=== PATIENT | male | born 1945 | race Hispanic/Latino ===

== ENCOUNTER 2016-05-29 07:20 | Outpatient (CLI) | payer MEDICARE ==
--- NOTE | 2016-05-30 08:57 | Magnetic Resonance Report ---
MRI ABDOMEN WITHOUT AND WITH CONTRAST : 05/29/16 CLINICAL: Renal mass. COMPARISON :CT abdomen and pelvis with contrast 06/01/16 TECHNIQUE: Axial T1 in phase and opposed phase, coronal and axial T2 and axial T2 fat sat sequences plus multiphase postcontrast T1 fat sat sequences plus thin and thick slab MRCP sequences on a 1.5 Kimberly magnet. 12 cc of Multihance was injected intravenously for the contrast portion of the exam and consent was obtained prior to the administration of the contrast. FINDINGS: An oval enhancing mass of the lower pole of the left kidney measures 5.4 cm craniocaudal dimension by 5.1 cm AP dimension by 4.0 cm transverse dimension. The mass contains numerous nonenhancing small cysts with some approaching 1 cm in diameter. A left upper pole renal cyst has a smooth thin wall and measures 13.8 x 11.5 x 9.9 cm. No other mass or cyst of the left kidney. The left renal collecting system and ureter are nondilated. The left kidney measures 11.1 cm in length excluding the lower pole mass and the upper pole cyst. The right kidney measures 11.3 cm in length. A few small right renal cysts. The largest is central and measures 1.5 cm. The right renal collecting system and ureter are nondilated. No lymphadenopathy identified. The aorta and inferior vena cava are normal. The adrenal glands are normal. Normal liver, gallbladder and bile ducts. Normal stomach, duodenum, pancreas and spleen. No ascites. The imaged portions of small bowel and colon are normal. The bones and soft tissues are unremarkable. IMPRESSION: 1. A 5.4 cm mass of the lower pole of the left kidney with both solid and cystic components suspicious for renal cell carcinoma. 2. Bilateral benign renal cysts with the largest on the left measuring 13.8 cm. 3. No lymphadenopathy.
== END 2016-05-29 07:21 | disposition home or self-care (01) ==
LOC: MRI 07:20 → SPVIMAG 07:20
PROVIDERS: ATTEND Urology
DX: N28.1 Cyst of kidney, acquired (principal)
CPT/HCPCS: 74183; A9577

== ENCOUNTER 2016-06-29 11:03 | Day surgery (SDC) | payer MEDICARE ==
[2016-06-28 15:04] LABS: Hematocrit 25.4 % (35.5-45.6); Hemoglobin 7.6 gm/dl (11.8-15.2)
[2016-06-29] MEDS ORDERED: NACL 0.9% 250ML 250 ML IV ONE (11:05)
[2016-06-29 14:22] VITALS: BP 127/51
--- NOTE | 2016-07-03 10:55 | Query-Anemia ---
Rhonda Sanchez Date:_07/03/16 [employer]/CDS:Yvette Alvarez Phone#:[phone] Exercise your independent professional judgment when responding to this query. Questions asked do not imply a particular answer is desired or expected. We greatly appreciate your clarification on this issue. Clinical Documentation States: 71 Y/O Male presented 06/29/2016 to the outpatient surgical center at [facility] for a blood transfusion. Clinical Findings Show: 06/28 Hgb: 7.6 Hct: 25.4 Etiology: [ ] Anemia due to acute blood loss [ ] Anemia due to chronic blood loss [ ] Anemia secondary to ESRD [ ] Anemia secondary to neoplastic disease [ ] Iron deficiency anemia due to malabsorption [ ] GI Bleed from: [ ] Anemia of chronic disease ,Other: [ ] Precipitous Drop in Hemoglobin [ ] Precipitous Drop in Hematocrit [ ] Other: [ ] Unable to determine [ ] Comment/Explanation: Present on Admission: [ ] Yes (Y) [ ] Clinically undeterminable (W) [ ] No (N) Please also document response in your Progress Notes and/or Discharge Summary and indicate if the condition was present on admission. IDRIS
== END 2016-06-29 14:25 | disposition home or self-care (01) ==
LOC: OPU 11:03
PROVIDERS: ATTEND Internal Medicine
DX: Z00.8 Encounter for other general examination (principal); Z79.899 Other long term (current) drug therapy
CPT/HCPCS: 36415; 36430; 85014; 85018; 86850; 86900; 86901; 86920; J7050; P9016

== ENCOUNTER 2016-07-09 16:56 | Inpatient (IN) | payer MEDICARE ==
--- NOTE | 2016-07-09 17:53 | Emergency Department Report ---
HPI - General Chief Complaint: Dizziness Time Seen by Provider: 07/09/16 17:32 - HPI HPI: Room 6 The patient is 71-year-old male presenting with a chief complaint of lightheadedness. The patient states 2 weeks ago he felt lightheaded and attributed to anemia. Patient was given a blood transfusion and his symptoms resolved. Patient states his lightheadedness began to return yesterday and this morning it worsened. Patient denies bright red blood per rectum or melena. Patient denies chest pain does admit to occasional shortness of breath with exertion. Patient denies nausea or vomiting. Location: Head Duration: [see above] Quality: Lightheadedness Severity: Moderate Modifying factors: [see above] Context: [see above] Mode of transportation: [not driving] ED Past Medical Hx - Past Medical History Previous Medical History?: Yes Hx Hypertension: Yes Hx Heart Attack/AMI: Yes Hx Congestive Heart Failure: Yes Hx Diabetes: Yes Hx Kidney Stones: Yes (right kidney- stones; left kidney-mass dx 05/2016) - Surgical History Past Surgical History?: Yes Additional Surgical History: Bypass, toe - Family History Family history: no significant - Social History Smoking Status: Never Smoker Substance Use Type: Alcohol (occasional) - Medications Home Medications: Home Medications Medication Instructions Recorded Confirmed Last Taken Type Furosemide [Lasix] 40 mg PO BID 07/31/13 07/09/16 07/09/16 History Amlodipine Besylate 5 mg PO DAILY 08/12/14 07/09/16 07/09/16 History Fish Oil 1,000 mg Softgel 1,000 mg PO DAILY 08/12/14 07/09/16 07/09/16 History Lantus 25 units SQ HS 08/12/14 07/09/16 07/09/16 History Lipitor 40 mg PO DAILY 08/12/14 07/09/16 07/09/16 History Onglyza 5 mg PO DAILY 08/12/14 07/09/16 07/09/16 History Quinapril(Nf) 20 mg PO DAILY 08/12/14 07/09/16 07/09/16 History Vitamin C 1,000 mg PO DAILY 08/12/14 07/09/16 07/09/16 History Aspirin EC [Aspirin Enteric Coated 81 mg PO QDAY tablet 08/16/14 07/09/1607/09 Rx TAB] Magnesium Oxide [Mag-Ox] 400 mg PO QDAY #30 tablet 08/16/14 07/09/16 07/09/16 Rx Potassium Chloride [K-Dur] 20 meq PO QDAY #30 tablet 08/16/14 07/09/16 07/09/16 Rx Repaglinide [Prandin] 2 mg PO TIDWM tablet 08/16/14 07/09/16 07/09/16 Rx Rivaroxaban [Xarelto] 20 mg PO DAILY #30 tablet 08/16/14 07/09/16 07/09/16 Rx Flax Seed Oil 1,000 mg PO HS 07/26/15 07/09/16 07/09/16 History Insulin Lispro Prot/Lispro 55 units SUB-Q QAM 07/26/15 07/09/16 07/09/16 History [HumaLOG Mix 75/25 Vial] Amiodarone [Cordarone 200 MG TAB] 200 mg PO BID #60 tablet 07/29/15 07/09/16 Rx Carvedilol [Coreg] 12.5 mg PO BID #60 tablet 07/29/15 07/09/16 07/09/16 Rx Diphenoxylate HCl/Atropine 2 each PO QID PRN #20 tablet 05/05/16 07/09/16 Rx [Lomotil 2.5-0.025 mg Tablet] ED Review of Systems ROS: Stated complaint: LIGHTHEADEDNESS Other details as noted in HPI Comment: All other systems reviewed and negative Constitutional: denies: chills, fever Eyes: denies: eye pain, eye discharge, vision change ENT: denies: ear pain, throat pain Respiratory: SOB with exertion Cardiovascular: denies: chest pain, palpitations Endocrine: no symptoms reported Gastrointestinal: denies: abdominal pain, nausea, diarrhea Genitourinary: denies: urgency, dysuria Musculoskeletal: denies: back pain, joint swelling, arthralgia Skin: denies: rash, lesions Neurological: other (lightheadedness). denies: headache, weakness, paresthesias Psychiatric: denies: anxiety, depression Hematological/Lymphatic: denies: easy bleeding, easy bruising Physical Exam - Physical Exam Vital Signs: Vital Signs 07/09/16 17:14 Temperature 98.1 F Pulse Rate 60 Respiratory 18 Rate Blood Pressure 125/50 O2 Sat by Pulse 98 Oximetry Physical Exam: GENERAL: The patient is well-developed well-nourished male lying on stretcher not appearing to be in acute distress. [] HEENT: Normocephalic. Atraumatic. Extraocular motions are intact. Patient has moist mucous membranes. NECK: Supple. Trachea midline CHEST/LUNGS: Clear to auscultation. There is no respiratory distress noted. HEART/CARDIOVASCULAR: Regular. There is no tachycardia. There is no gallop rub or murmur. ABDOMEN: Abdomen is soft, nontender. Patient has normal bowel sounds. There is no abdominal distention. SKIN: There is no rash. There is no edema. There is no diaphoresis. NEURO: The patient is awake, alert, and oriented. The patient is cooperative. Cranial nerves II through XII grossly intact, no drift. The patient has normal speech. MUSCULOSKELETAL: There is no evidence of acute injury. ED Course Vital Signs 07/09/16 17:14 Temperature 98.1 F Pulse Rate 60 Respiratory 18 Rate Blood Pressure 125/50 O2 Sat by Pulse 98 Oximetry ED Medical Decision Making - Lab Data Result diagrams: 07/09/16 17:38 07/09/16 17:38 Laboratory Tests 07/09/16 07/09/16 07/09/16 17:09 17:38 17:38 WBC 8.7 RBC 3.71 Hgb 8.0 L Hct 26.3 L MCV 71 L MCH 22 L MCHC 31 L RDW 19.2 H Plt Count 217 Lymph % (Auto) 16.5 [place] % (Auto) 10.4 H Eos % (Auto) 1.4 Baso % (Auto) 1.2 Lymph # 1.4 [place] # 0.9 H Eos # 0.1 Baso # 0.1 Seg Neutrophils % 70.5 H Seg Neutrophils # 6.2 PT 28.8 H INR 2.70 H APTT 47.1 H Sodium Potassium Chloride Carbon Dioxide Anion Gap BUN Creatinine Estimated GFR BUN/Creatinine Ratio Glucose POC Glucose 279 H Calcium Total Creatine Kinase CK-MB (CK-2) CK-MB (CK-2) Rel Index Troponin T TSH Free T4 Urine Color Urine Turbidity Urine pH Ur Specific [place] Urine Protein Urine Glucose (UA) Urine Ketones Urine Blood Urine Nitrite Urine Bilirubin Urine Urobilinogen Ur Leukocyte Esterase Urine WBC (Auto) Urine RBC (Auto) U Epithel Cells (Auto) Blood Type Antibody Screen Crossmatch 07/09/16 07/09/16 07/09/16 17:38 17:38 17:45 WBC RBC Hgb Hct MCV MCH MCHC RDW Plt Count Lymph % (Auto) [place] % (Auto) Eos % (Auto) Baso % (Auto) Lymph # [place] # Eos # Baso # Seg Neutrophils % Seg Neutrophils # PT INR APTT Sodium 136 L Potassium 5.6 H Chloride 99.8 Carbon Dioxide 23 Anion Gap 19 BUN 27 H Creatinine 1.2 Estimated GFR 60 BUN/Creatinine Ratio 22.50 Glucose 266 H POC Glucose Calcium 8.8 Total Creatine Kinase 77 CK-MB (CK-2) 2.9 CK-MB (CK-2) Rel Index 3.7 Troponin T < 0.010 TSH 0.936 Free T4 1.18 Urine Color Urine Turbidity Urine pH Ur Specific [place] Urine Protein Urine Glucose (UA) Urine Ketones Urine Blood Urine Nitrite Urine Bilirubin Urine Urobilinogen Ur Leukocyte Esterase Urine WBC (Auto) Urine RBC (Auto) U Epithel Cells (Auto) Blood Type O POSITIVE Antibody Screen TNR Crossmatch See Detail 07/09/16 18:23 WBC RBC Hgb Hct MCV MCH MCHC RDW Plt Count Lymph % (Auto) [place] % (Auto) Eos % (Auto) Baso % (Auto) Lymph # [place] # Eos # Baso # Seg Neutrophils % Seg Neutrophils # PT INR APTT Sodium Potassium Chloride Carbon Dioxide Anion Gap BUN Creatinine Estimated GFR BUN/Creatinine Ratio Glucose POC Glucose Calcium Total Creatine Kinase CK-MB (CK-2) CK-MB (CK-2) Rel Index Troponin T TSH Free T4 Urine Color Red Urine Turbidity Cloudy Urine pH 6.0 Ur Specific [place] 1.013 Urine Protein 100 mg/dl Urine Glucose (UA) Neg Urine Ketones Neg Urine Blood Lg Urine Nitrite Neg Urine Bilirubin Neg Urine Urobilinogen < 2.0 Ur Leukocyte Esterase Sm Urine WBC (Auto) 23.0 H Urine RBC (Auto) > 182.0 U Epithel Cells (Auto) 3.0 Blood Type Antibody Screen Crossmatch - Radiology Data Radiology results: report reviewed (CT head), image reviewed (CT head) CT head (read by radiologist)-no abnormal mass or acute intracranial hemorrhage is identified - Differential Diagnosis symptomatic anemia Critical care attestation.: If time is entered above; I have spent that time in minutes in the direct care of this critically ill patient, excluding procedure time. ED Disposition Clinical Impression: Symptomatic anemia, Hematuria, UTI (urinary tract infection) Disposition: OP ADMITTED IP TO THIS HOSP Is pt being admited?: Yes Does the pt Need Aspirin: No Condition: Fair Time of Disposition: 18:43 (hospitalist paged)
[2016-07-09 18:09] LABS: Basophils % (Auto) 1.2 % (0.0-1.8); Eosinophils % (Auto) 1.4 % (0.0-4.3); Hematocrit 26.3 % (35.5-45.6); Mean Corpuscular HGB Conc 31 % (32-34); Mean Corpuscular Hemoglobin 22 pg (28-32); Mean Corpuscular Volume 71 fl (84-94); Platelet Count 217 K/mm3 (140-440); Red Blood Count 3.71 M/mm3 (3.65-5.03); Red Cell Distribution Width 19.2 % (13.2-15.2); White Blood Count 8.7 K/mm3 (4.5-11.0)
[2016-07-09] MEDS ORDERED: NACL 0.9% 500 ML 500 ML IV ONE (18:16)
[2016-07-09 18:19] LABS: INR 2.7 (0.87-1.13)
[2016-07-09 18:20] LABS: Partial Thromboplastin Time 47.1 Sec. (24.2-36.6)
[2016-07-09 18:23] LABS: Creatine Kinase MB 2.9 ng/mL (0.0-4.0)
[2016-07-09 18:26] LABS: Anion Gap 19 mmol/L; Blood Urea Nitrogen 27 mg/dL (9-20); Calcium 8.8 mg/dL (8.4-10.2); Carbon Dioxide 23 mmol/L (22-30); Chloride 99.8 mmol/L (98-107); Creatine Kinase 77 units/L (55-170); Glucose 266 mg/dL (75-100); Potassium 5.6 mmol/L (3.6-5.0); Sodium 136 mmol/L (137-145)
[2016-07-09 18:35] LABS: Bilirubin,Urine NEG (Negative); Blood,Urine LG (Negative); Ketones,Urine NEG (Negative); Leukocyte Esterase,Urine SM (Negative); Nitrite,Urine NEG (Negative); Urobilinogen,Urine < 2.0 mg/dL (<2.0)
[2016-07-09 18:36] LABS: RBC,Urine > 182.0 /HPF (0.0-6.0)
--- NOTE | 2016-07-09 18:40 | Cat Scan Report ---
FINAL REPORT EXAM: CT HEAD/BRAIN WO CON HISTORY: lightheadedness TECHNIQUE: Noncontrast serial axial images from skull base to vertex PRIORS: None. FINDINGS: There is moderate atrophy. There is no mass effect or midline shift. There are no abnormal intra or extra-axial fluid collections. Lateral ventricles are within normal limits for size and configuration. Basilar cisterns are patent. No acute intracranial hemorrhage is identified. Areas of relative hypodensity are seen in the white matter of the frontal lobes. Atherosclerotic changes are noted. Visualized paranasal sinuses and mastoid air cells are well aerated. No acute osseous abnormality is identified. IMPRESSION: 1. No abnormal mass or acute intracranial hemorrhage is identified. 2. Areas of relative hypodensity are seen in the white matter of the frontal lobes. This is a nonspecific finding. It may be related to chronic ischemic change from small vessel disease.
[2016-07-09] MEDS ORDERED: NACL 0.9% 500 ML 500 ML ONE (20:34)
--- NOTE | 2016-07-09 21:57 | Event Note ---
Date: 07/09/16 See H/p in reports Acute Anemia IDDM R/o GI Bleed HTN CHF CAD Hyperkalemia UTI
[2016-07-09] MEDS ORDERED: LANTUS 25 UNIT SQ SCH (22:00)
--- NOTE | 2016-07-09 22:54 | History and Physical Report ---
CHIEF COMPLAINT: Dizziness. HISTORY OF PRESENT ILLNESS: A 71-year-old male who comes in for feeling lightheaded and dizzy. The patient attributed his lightheadedness and dizziness to anemia. The patient was given blood transfusion about a week ago. Dr. Daily is his primary care. Since last couple of few days, it has been last 3-4 days, he has been feeling lightheaded and feeling very weak. No black tarry stools. Denies cough, fever or chills. Shortness of breath with exertion. No tarry stools, no vomiting or blood. Occasional abdominal cramps. Pain is about 4-5 a scale of 1-10. No exacerbating or relieving factors. PAST MEDICAL HISTORY: Significant for insulin-dependent diabetes, hypertension, acute coronary artery disease, congestive heart failure, right kidney stones, and left kidney mass. 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 FAMILY HISTORY: No hypertension present. SOCIAL HISTORY: He does not smoke. Occasional alcohol. MEDICATIONS ON THE CHART: The patient takes Lantus 40 mg p.o. daily, Lipitor 40 mg p.o. daily, Onglyza 5 mg p.o. daily, quinapril 20 mg p.o. daily, and Xarelto 20 mg p.o. daily. REVIEW OF SYSTEMS: CONSTITUTIONAL: No fever, no weight loss, generalized weakness present. HEENT: No sore throat. No postnasal drip. CARDIOVASCULAR AND RESPIRATORY SYSTEM: Shortness of breath on exertion present. No chest pain, no palpitations. No cough, no wheezing. GASTROINTESTINAL: No tarry stools. No diarrhea, no constipation. GENITOURINARY SYSTEM: Denies any urgency or frequency. MUSCULOSKELETAL SYSTEM: No joint pain, no muscle pains. CENTRAL NERVOUS SYSTEM: No syncope, no seizures. PSYCHIATRIC: No anxiety, no depression. HEMATOLOGIC/LYMPHATIC SYSTEM: Denies easy bleeding. SKIN: Normal. No rash. A 10-point review of systems done. PHYSICAL EXAMINATION: GENERAL: Elderly male lying in bed comfortably, cheerful. VITAL SIGNS: Temperature 98.1, pulse 60, respiration 18, blood pressure 125/50. HEENT: Unremarkable. Pupils equal and reactive. NECK: Supple, no lymphadenopathy, no thyromegaly. LUNGS: Clear to auscultation and percussion. Good air entry. CARDIOVASCULAR: S1, S2 heard. No gallop, no murmur, no rub. Apical impulse in the left fifth intercostal space and midclavicular line. ABDOMEN: Soft and benign. No hepatosplenomegaly. No guarding, no rigidity. Hernial orifices are normal. EXTREMITIES: Good pedal pulses. No pedal edema. CENTRAL NERVOUS SYSTEM: Alert and oriented x 4, nonfocal exam. SKIN: Normal. LABORATORY DATA: White count is 8700, hemoglobin was 8.0 and hematocrit is 26.3. Pro-time is 28.8, INR is 2.7. Sodium is 136, potassium is 5.6, BUN and creatinine is 27 and 1.2. Glucose is 266 and 279. Urine shows 23 white cells. ASSESSMENT AND PLAN: 1. Acute anemia. The patient has GI consult ordered for Dr. Duran's group. The patient may need upper and lower endoscopy. There is no reason for his anemia. Also, has to check iron levels, B12, and folic acid. 2. Uncontrolled diabetes, coverage for now. 3. Hyperkalemia, mild. Calcium gluconate and sodium bicarbonate given. 4. Urinary tract infection, Rocephin 1 g IV piggyback started. 5. Coronary artery disease, the patient Xarelto. We will hold the Xarelto for the time being. 6. Arrhythmias. Continue amiodarone 200 mg twice a day. 7. Hypertension. Continue amlodipine 5 mg daily and carvedilol 12.5 daily. 8. Congestive heart failure. Continue Lasix 40 mg twice a day. 9. Insulin-dependent diabetes. Continue insulin coverage and Lantus at nighttime 25 units. 10. Deep venous thrombosis prophylaxis. The patient's Xeralto on hold, only sequential compression devices. Lovenox 40 mg subcutaneous daily ordered. JOB# [id number] NOEL/CRISTA LEED
[2016-07-09] MEDS ORDERED: NACL 0.9% 250ML 250 ML ONE (23:00)
[2016-07-10] MEDS: COREG PO SCH ×2 (02:37→09:36)
[2016-07-10] MEDS: CORDARONE PO SCH ×2 (02:37→09:36)
[2016-07-10] MEDS: LEVEMIR SUB-Q SCH ×2 (02:38→23:00)
[2016-07-10] MEDS: LASIX PO SCH ×3 (02:38→21:44)
[2016-07-10] MEDS: NORVASC PO SCH ×2 (02:40→09:36)
[2016-07-10] MEDS: MAG-OX PO SCH ×2 (02:40→09:36)
[2016-07-10] MEDS: NOVOLOG SUB-Q SCH ×5 (02:40→23:00)
[2016-07-10] MEDS ORDERED: NACL 0.9% 250ML 250 ML IV ONE (03:25)
[2016-07-10 07:38] LABS: Total Iron Binding Capacity 417.2 mcg/dL (250-450)
--- NOTE | 2016-07-10 09:18 | Admit Criteria Form ---
Admission Criteria Documentation: ANEMIA, IRON DEFICIENCY OR UNSPECIFIED Clinical Indications for Inpatient Care (Place 'X' for any and all applicable criteria): Admission is indicated for ANY ONE of the following(1)(2)(3)(4)(5)(6)(7): [X] I. Inpatient admission required rather than observation care (Also use Anemia, Iron Deficiency or Unspecified: Observation Care guideline as appropriate) because of ANY ONE of the following: [] a) Hemodynamic instability that is severe or persistent [] b) Active bleeding that cannot be rapidly controlled [] c) CVS symptoms (i.e., dyspnea, chest pain, heart failure) that are severe or persistent [] d) Neurologic symptoms (i.e., cognitive impairment, recurrent syncope or near syncope) that are severe or persistent [] e) Cardiac arrhythmias of immediate concern [] f) Acute peripheral ischemia (e.g., pulseless, cool, mottled, or cyanotic extremity) [] g) High-risk low platelet count [] h) Acute renal failure [] i) Ongoing transfusion for blood loss (greater than 2 units) [] j) IV fluid to replace significant ongoing (eg, >24 hours) losses (> 3 L/m2 per day) [] k) Pulmonary artery catheter monitoring [] l) Supplemental oxygen or respiratory treatments for over 24 hours that are performable only in acute inpatient setting [] m) Immediate inpatient surgery [X] n) Other condition, treatment or monitoring requiring inpatient admission [] II Active massive hemorrhage [] III. Active hemolysis with rapidly progressive anemia [A](6) Extended stay beyond goal length of stay may be needed for (17)(18) []a) Diagnosed cause of anemia requiring longer hospitalization (eg, active GI bleeding, immune hemolysis requiring electrophoresis, complications of malignancy requiring acute care []b) Continued emergent anemia indicators (23) []c) Transfusion reactions []d) Associated leukopenia or thrombocytopenia needing inpatient care []e) Active comorbidities (eg, renal failure, heart failure) The original [facility] Care Guidelines content created by [facility] Care Guidelines has been revised. The portions of the content which have been revised are identified through the use of italic text or in bold. [facility] Guidelines has neither reviewed nor approved the modified material. All other unmodified content is copyright [facility] Care Guidelines. Please see references footnoted in the original [facility] edition 2016 Admission Criteria Met: Yes
[2016-07-10] MEDS: ROCEPHIN/NS 1 GM/50 ML 1 GM/50 ML BAG IV SCH (09:35)
[2016-07-10] MEDS: PRANDIN PO SCH ×3 (09:35→17:54)
[2016-07-10] MEDS: ZESTRIL PO SCH (09:35)
[2016-07-10] MEDS: TRADJENTA PO SCH (09:35)
[2016-07-10] MEDS ORDERED: [UNRECOGNIZED DRUG - OTHER] SUB-Q SCH (10:00)
[2016-07-10] MEDS ORDERED: INSULIN LISPRO PROTAMINE SUB-Q SCH (10:00)
[2016-07-10] MEDS ORDERED: KIONEX PO ONE (14:10)
--- NOTE | 2016-07-10 14:18 | Progress Note ---
Assessment and Plan Assessment and plan: 71-year-old male with medical history significant for bradycardia, left kidney mass presented to the emergency department complaining of syncope and blurring vision. In the emergency department vital signs were stable and his hemoglobin was 8 he was transfused with 2 units Packed red blood cells. - Microcytic anemia ; patient has history of hematuria likely the source, we need to rule out if he has GI blood loss, FOBT was ordered but not collected, Parvez consult is placed. Post transfusion hemoglobin hematocrit is pending - Left kidney mass likely malignancy could be the cause of her anemia, patient is scheduled to have nephrectomy on July 21 and advised to keep that appointment - Bradycardia ; patient is on amiodarone and no NOVAC, patient may have A. fib didn't see any record in his previous admissions, cardiology consult is placed, carvedilol discontinued Diabetic ; continue sliding scale insulin Hyperkalemia; give him Kayexalate DVT prophylaxis ; on SCDs Disposition ; possible discharge tomorrow History Interval history: Patient was seen and evaluated this morning, patient didn't have any dizziness today, patient denied any dark stool. Patient has bradycardia. Hospitalist Physical - Physical exam Narrative exam: Not in cardiopulmonary distress. The patient appeared well nourished and normally developed. Vital signs as documented. Head exam is unremarkable. No scleral icterus . Neck is without jugular venous distension, thyromegaly, or carotid bruits. Lungs are clear to auscultation. Cardiac exam reveals sinus bradycardia. Abdominal exam reveals normal bowel sounds, no masses, no organomegaly and no aortic enlargement. Extremities are nonedematous and both femoral and pedal pulses are normal. CARCASS WASHER: Alert and oriented 3. No focal weakness. - Constitutional Vitals: Temp Pulse Resp BP Pulse Ox 98.2 F 42 L 20 120/56 97 07/10/16 12:00 07/10/16 12:00 07/10/16 12:00 07/10/16 12:00 07/10/16 08:03 Results - Labs CBC & Chem 7: 07/09/16 17:38 07/09/16 17:38 Labs: Laboratory Last Values WBC 8.7 K/mm3 (4.5-11.0) 07/09/16 17:38 RBC 3.71 M/mm3 (3.65-5.03) 07/09/16 17:38 Hgb 8.0 gm/dl (11.8-15.2) L 07/09/16 17:38 Hct 26.3 % (35.5-45.6) L 07/09/16 17:38 MCV 71 fl (84-94) L 07/09/16 17:38 MCH 22 pg (28-32) L 07/09/16 17:38 MCHC 31 % (32-34) L 07/09/16 17:38 RDW 19.2 % (13.2-15.2) H 07/09/16 17:38 Plt Count 217 K/mm3 (140-440) 07/09/16 17:38 Lymph % (Auto) 16.5 % (13.4-35.0) 07/09/16 17:38 [place] % (Auto) 10.4 % (0.0-7.3) H 07/09/16 17:38 Eos % (Auto) 1.4 % (0.0-4.3) 07/09/16 17:38 Baso % (Auto) 1.2 % (0.0-1.8) 07/09/16 17:38 Lymph # 1.4 K/mm3 (1.2-5.4) 07/09/16 17:38 [place] # 0.9 K/mm3 (0.0-0.8) H 07/09/16 17:38 Eos # 0.1 K/mm3 (0.0-0.4) 07/09/16 17:38 Baso # 0.1 K/mm3 (0.0-0.1) 07/09/16 17:38 Seg Neutrophils % 70.5 % (40.0-70.0) H 07/09/16 17:38 Seg Neutrophils # 6.2 K/mm3 (1.8-7.7) 07/09/16 17:38 PT 28.8 Sec. (12.2-14.9) H 07/09/16 17:38 INR 2.70 (0.87-1.13) H 07/09/16 17:38 APTT 47.1 Sec. (24.2-36.6) H 07/09/16 17:38 Sodium 136 mmol/L (137-145) L 07/09/16 17:38 Potassium 5.6 mmol/L (3.6-5.0) H 07/09/16 17:38 Chloride 99.8 mmol/L (98-107) 07/09/16 17:38 Carbon Dioxide 23 mmol/L (22-30) 07/09/16 17:38 Anion Gap 19 mmol/L 07/09/16 17:38 BUN 27 mg/dL (9-20) H 07/09/16 17:38 Creatinine 1.2 mg/dL (0.8-1.5) 07/09/16 17:38 Estimated GFR 60 ml/min 07/09/16 17:38 BUN/Creatinine Ratio 22.50 % 07/09/16 17:38 Glucose 266 mg/dL (75-100) H 07/09/16 17:38 POC Glucose 107 (70-105) H 07/10/16 11:35 Hemoglobin A1c 5.8 % (4-6) 07/10/16 04:10 Calcium 8.8 mg/dL (8.4-10.2) 07/09/16 17:38 Iron 22 ug/dL (49-181) L 07/09/16 22:42 TIBC 417.20 mcg/dL (250-450) 07/09/16 22:42 % Saturation 5.27 % 07/09/16 22:42 Transferrin 298 mg/dl (180-329) 07/09/16 22:42 Total Creatine Kinase 77 units/L (55-170) 07/09/16 17:38 CK-MB (CK-2) 2.9 ng/mL (0.0-4.0) 07/09/16 17:38 CK-MB (CK-2) Rel Index 3.7 (0-4) 07/09/16 17:38 Troponin T < 0.010 ng/mL (0.00-0.029) 07/09/16 17:38 TSH 0.936 mlU/mL (0.270-4.200) 07/09/16 17:38 Free T4 1.18 ng/dL (0.76-1.46) 07/09/16 17:38 Urine Color Red (Yellow) 07/09/16 18:23 Urine Turbidity Cloudy (Clear) 07/09/16 18:23 Urine pH 6.0 (5.0-7.0) 07/09/16 18:23 Ur Specific [place] 1.013 (1.003-1.030) 07/09/16 18:23 Urine Protein 100 mg/dl mg/dL (Negative) 07/09/16 18:23 Urine Glucose (UA) Neg mg/dL (Negative) 07/09/16 18:23 Urine Ketones Neg mg/dL (Negative) 07/09/16 18:23 Urine Blood Lg (Negative) 07/09/16 18:23 Urine Nitrite Neg (Negative) 07/09/16 18:23 Urine Bilirubin Neg (Negative) 07/09/16 18:23 Urine Urobilinogen < 2.0 mg/dL (<2.0) 07/09/16 18:23 Ur Leukocyte Esterase Sm (Negative) 07/09/16 18:23 Urine WBC (Auto) 23.0 /HPF (0.0-6.0) H 07/09/16 18:23 Urine RBC (Auto) > 182.0 /HPF (0.0-6.0) 07/09/16 18:23 U Epithel Cells (Auto) 3.0 /HPF (0-13.0) 07/09/16 18:23 Blood Type O POSITIVE 07/09/16 17:45 Antibody Screen TNR 07/09/16 17:45 NICK Antibody Screen Negative 07/09/16 17:45 Crossmatch See Detail 07/09/16 17:45
--- NOTE | 2016-07-10 14:32 | Consultation ---
History of Present Illness Consult date: 07/10/16 Consult reason: bradycardia History of present illness: This is a 71yr old male with an extensive cardiac history. He has a history of atrial fibrillation/flutter. A year ago he was successfully cardioverted from atrial fibrillation to a sinus rhythm. He is on amiodarone for suppression and xarelto for stroke prophylaxis. He has a history coronary artery disease with remote bypass grafting. He also has a history of ischemic cardiomyopathy. Patient has declined recommendation for internal cardiac defibrillator in the past. He presented to this hospital with chief complaint of dizziness when standing. Found to have a HCT of 26.3 and admitted for evaluation and treatment. A cardiac consultation is requested for sinus bradycardia. His presenting ECG shows a sinus rhythm with nonspecific T wave abnormalities. While on telemetry monitoring he was noted to have sinus bradycardia with rate in the low 40s. He is currently on carvediolol 12.5mg twice daily. He has a normal TSH of 0.9. Patient denies dizziness. There was no syncope. Cardiac consultation requested for further recommendations. Past History Past Medical History: atrial fib, CAD, diabetes, hypertension Past Surgical History: CABG Medications and Allergies Allergies Allergy/AdvReac Type Severity Reaction Status Date / Time Penicillins Allergy Severe Hives Verified 07/31/13 09:19 Sulfa (Sulfonamide AdvReac Severe Nausea Verified 07/31/13 09:22 Antibiotics) Home Medications Medication Instructions Recorded Confirmed Last Taken Type Furosemide [Lasix] 40 mg PO BID 07/31/13 07/09/16 07/09/16 History Amlodipine Besylate 5 mg PO DAILY 08/12/14 07/09/16 07/09/16 History Fish Oil 1,000 mg Softgel 1,000 mg PO DAILY 08/12/14 07/09/16 07/09/16 History Lantus 25 units SQ HS 08/12/14 07/09/16 07/09/16 History Lipitor 40 mg PO DAILY 08/12/14 07/09/16 07/09/16 History Onglyza 5 mg PO DAILY 08/12/14 07/09/16 07/09/16 History Quinapril(Nf) 20 mg PO DAILY 08/12/14 07/09/16 07/09/16 History Vitamin C 1,000 mg PO DAILY 08/12/14 07/09/16 07/09/16 History Aspirin EC [Aspirin Enteric Coated 81 mg PO QDAY tablet 08/16/14 07/09/1607/09 Rx TAB] Magnesium Oxide [Mag-Ox] 400 mg PO QDAY #30 tablet 08/16/14 07/09/16 07/09/16 Rx Potassium Chloride [K-Dur] 20 meq PO QDAY #30 tablet 08/16/14 07/09/16 07/09/16 Rx Repaglinide [Prandin] 2 mg PO TIDWM tablet 08/16/14 07/09/16 07/09/16 Rx Rivaroxaban [Xarelto] 20 mg PO DAILY #30 tablet 08/16/14 07/09/16 07/09/16 Rx Flax Seed Oil 1,000 mg PO HS 07/26/15 07/09/16 07/09/16 History Insulin Lispro Prot/Lispro 55 units SUB-Q QAM 07/26/15 07/09/16 07/09/16 History [HumaLOG Mix 75/25 Vial] Amiodarone [Cordarone 200 MG TAB] 200 mg PO BID #60 tablet 07/29/15 07/09/16 Rx Carvedilol [Coreg] 12.5 mg PO BID #60 tablet 07/29/15 07/09/16 07/09/16 Rx Diphenoxylate HCl/Atropine 2 each PO QID PRN #20 tablet 05/05/16 07/09/16 Rx [Lomotil 2.5-0.025 mg Tablet] Active Meds: Active Medications Amiodarone HCl (Cordarone) 200 mg PO BID [facility] Last Admin: 07/10/16 09:36 Dose: 200 mg Amlodipine Besylate (Norvasc) 5 mg PO DAILY [facility] Last Admin: 07/10/16 09:36 Dose: 5 mg Atorvastatin Calcium (Lipitor) 40 mg PO QHS [facility] Last Admin: 07/10/16 02:39 Dose: Not Given Furosemide (Lasix) 40 mg PO BID [facility] Last Admin: 07/10/16 09:36 Dose: 40 mg Ceftriaxone Sodium (Rocephin/Ns 1 Gm/50 Ml) 1 gm in 50 mls @ 100 mls/hr IV Q24HR [facility] PRN Reason: Protocol Last Admin: 07/10/16 09:35 Dose: 100 mls/hr Insulin Aspart (Novolog) 0 units SUB-Q ACHS [facility] PRN Reason: Protocol Last Admin: 07/10/16 11:53 Dose: Not Given Insulin Detemir (Levemir) 25 units SUB-Q QHS [facility] Last Admin: 07/10/16 02:38 Dose: Not Given Insulin Human Isoph/Insulin Regular (Novolin 70/30) 55 unit SUB-Q QAM@0800 [facility] Last Admin: 07/10/16 09:36 Dose: Not Given Linagliptin (Tradjenta) 5 mg PO QDAY [facility] Last Admin: 07/10/16 09:35 Dose: 5 mg Lisinopril (Zestril) 10 mg PO QDAY [facility] Last Admin: 07/10/16 09:35 Dose: 10 mg Magnesium Oxide (Mag-Ox) 400 mg PO QDAY [facility] Last Admin: 07/10/16 09:36 Dose: 400 mg Repaglinide (Prandin) 2 mg PO TIDWM [facility] Last Admin: 07/10/16 12:47 Dose: 2 mg Physical Examination Vital Signs Temp Pulse Resp BP Pulse Ox 98.1 F 60 18 125/50 98 07/09/16 17:14 07/09/16 17:14 07/09/16 17:14 07/09/16 17:14 07/09/16 17:14 General appearance: no acute distress HEENT: Positive: PERRL Neck: Positive: trachea midline Lungs: Positive: Decreased Breath Sounds Neuro: Positive: Grossly Intact Results 07/09/16 17:38 07/09/16 17:38 Assessment and Plan Symptomatic Anemia s/p blood transfusion Hx of Ischemic cardiomyopathy pt has declined recommendation for internal cardiac defibrillator in the past Hx of CAD with CABG Hypertension Diabetes mellitus Hx of paroxysmal Afib/flutter on xarelto for stroke prophylaxis as an outpatient on amiodarone for suppression Sinus bradycardia on telemetry monitoring. Patient remains asymptomatic. noted on coreg 12.5mg twice daily Recommendation: Hold coreg for now. Continue telemetry monitoring.
[2016-07-10 16:40] LABS: Hematocrit 29.8 % (35.5-45.6); Hemoglobin 9.3 gm/dl (11.8-15.2)
[2016-07-10 16:59] LABS: Anion Gap 17 mmol/L; Blood Urea Nitrogen 18 mg/dL (9-20); Carbon Dioxide 25 mmol/L (22-30); Chloride 98.9 mmol/L (98-107); Glucose 198 mg/dL (75-100); Sodium 136 mmol/L (137-145)
[2016-07-10] MEDS ORDERED: GOLYTELY PO ONE (17:00)
[2016-07-11 06:46] LABS: Mean Corpuscular HGB Conc 30 % (32-34); Mean Corpuscular Volume 76 fl (84-94); Platelet Count 228 K/mm3 (140-440); Red Blood Count 4.34 M/mm3 (3.65-5.03); White Blood Count 9.3 K/mm3 (4.5-11.0)
[2016-07-11 06:52] LABS: Hematocrit 32.8 % (35.5-45.6); Hemoglobin 9.9 gm/dl (11.8-15.2); Mean Corpuscular Hemoglobin 23 pg (28-32); Red Cell Distribution Width 21.2 % (13.2-15.2)
[2016-07-11] MEDS: NOVOLOG SUB-Q SCH ×3 (07:30→17:27)
[2016-07-11] MEDS: PRANDIN PO SCH ×3 (08:13→17:25)
--- NOTE | 2016-07-11 08:20 | Consultation ---
REFERRING PHYSICIAN: Sridhar Cruz MD INDICATION: Anemia. HISTORY OF PRESENT ILLNESS: The patient is a 71-year-old white male with a history of diabetes, hypertension, coronary artery disease, and CHF, now being seen for weakness. The patient reports a recent history of anemia without obvious signs of blood loss. He reports he had a urological procedure 1 week ago and was told he was anemic and had to get transfused. He reports over the last 1-2 days he has become progressively weak and brought to the Emergency Room. In the Emergency Room, the patient was noted to be anemic. He reports no obvious melena or hematemesis. He reports some lower abdominal discomfort. Denies any weight loss. Reports last colonoscopy was about 3 years ago. No other specific complaints. PAST MEDICAL HISTORY: 1. Diabetes. 2. Hypertension. 3. Coronary artery disease. 4. CHF. 5. Kidney stones. 6. Status post CABG. MEDICATIONS: See chart. ALLERGIES: No known drug allergies. SOCIAL HISTORY: Reports social alcohol, denies tobacco. FAMILY HISTORY: Negative for colon cancer. REVIEW OF SYSTEMS: GENERAL: Reports mild weakness. HEENT: No visual complaints or tinnitus. PULMONARY: Denies shortness of breath. CARDIOVASCULAR: No chest pain. GASTROINTESTINAL: Reports weakness. All 13-point review of systems otherwise negative. PHYSICAL EXAMINATION: VITAL SIGNS: Temperature of 98.1, pulse 80, respirations 18, blood pressure 130/80. GENERAL: Fairly-nourished white male in no acute distress. HEENT: Pupils equal, round, reactive to light and accommodation. Extraocular muscles intact. PULMONARY: Clear to auscultation bilaterally. CARDIOVASCULAR: Regular rate and rhythm. Normal S1, S2. ABDOMEN: Soft, nontender. SKIN: No obvious rashes. LABORATORY DATA: Pertinent for white count of 8.7, hemoglobin and hematocrit of 8 and 26.3, platelet count of 217. Chem-7 within normal limits. INR of 2.7. ASSESSMENT: A 71-year-old male presents with anemia and progressive weakness and having to be transfused 1 week ago. The patient himself thinks it may be related to recent urological interventions. We will want to rule out GI component. PLAN: 1. Follow hematocrit and transfuse as needed. 2. PPI IV daily. 3. Avoid NSAIDs and aspirin. 4. If stable, plan EGD and colonoscopy in a.m. [facility]# [id number] SHARON/CRISTA STEINBERG
--- NOTE | 2016-07-11 08:24 | Progress Note ---
Assessment and Plan Assessment and plan: This is a 71yr old male with an extensive cardiac history. He has a history of atrial fibrillation/flutter on anticoagulation. A year ago he was successfully cardioverted from atrial fibrillation to a sinus rhythm. He is on amiodarone for suppression and xarelto for stroke prophylaxis. He has a history coronary artery disease with remote bypass grafting. He also has a history of ischemic cardiomyopathy. Patient has declined recommendation for internal cardiac defibrillator in the past. He presented to the hospital with chief complaint of dizziness upon standing he was found to have hematocrit of 26. And also admitted to hematuria. Patient has a left kidney mass to suspected to be malignancy for which she is planned for nephrectomy on July 21. 1. Acute blood loss anemia Patient has been transfused with adequate rise in hemoglobin. Most likely etiologies hematuria, patient is to have nephrectomy on July 21 2. Paroxysmal A. fib, patient is currently bradycardic Beta [place] has been put on hold, cardiology input appreciated Heart rate is improved today, on Xarelto for stroke prophylaxis, and amiodarone for treatment of A. fib 3. Left kidney mass Patient is planned for nephrectomy on July 21 for an outpatient, he's been advised to keep this appointment 4. Diabetes Continue insulins History Interval history: Denies dizziness, denies chest pain, denies palpitations or shortness of breath Hospitalist Physical - Physical exam Narrative exam: General: Patient appears well in no distress HEENT: MMM, EOMI cardiac: S1-S2 heard lungs: clear to auscultation, abdomen: soft, nontender, nondistended bowel sounds positive extremities: no edema clubbing or cyanosis Skin: no rash or lesion Neuro: no focal deficit Psych: appropriate behavior and mood, cognition intact - Constitutional Vitals: Temp Pulse Resp BP Pulse Ox 98.1 F 55 L 18 153/66 95 07/11/16 04:30 07/11/16 04:30 07/11/16 04:30 07/11/16 04:30 07/11/16 04:30 General appearance: Present: no acute distress Results - Labs CBC & Chem 7: 07/11/16 05:22 07/10/16 16:20 Labs: Laboratory Last Values WBC 9.3 K/mm3 (4.5-11.0) 07/11/16 05:22 RBC 4.34 M/mm3 (3.65-5.03) 07/11/16 05:22 Hgb 9.9 gm/dl (11.8-15.2) L 07/11/16 05:22 Hct 32.8 % (35.5-45.6) L 07/11/16 05:22 MCV 76 fl (84-94) L D 07/11/16 05:22 MCH 23 pg (28-32) L 07/11/16 05:22 MCHC 30 % (32-34) L 07/11/16 05:22 RDW 21.2 % (13.2-15.2) H 07/11/16 05:22 Plt Count 228 K/mm3 (140-440) 07/11/16 05:22 Lymph % (Auto) 16.5 % (13.4-35.0) 07/09/16 17:38 [place] % (Auto) 10.4 % (0.0-7.3) H 07/09/16 17:38 Eos % (Auto) 1.4 % (0.0-4.3) 07/09/16 17:38 Baso % (Auto) 1.2 % (0.0-1.8) 07/09/16 17:38 Lymph # 1.4 K/mm3 (1.2-5.4) 07/09/16 17:38 [place] # 0.9 K/mm3 (0.0-0.8) H 07/09/16 17:38 Eos # 0.1 K/mm3 (0.0-0.4) 07/09/16 17:38 Baso # 0.1 K/mm3 (0.0-0.1) 07/09/16 17:38 Seg Neutrophils % 70.5 % (40.0-70.0) H 07/09/16 17:38 Seg Neutrophils # 6.2 K/mm3 (1.8-7.7) 07/09/16 17:38 PT 28.8 Sec. (12.2-14.9) H 07/09/16 17:38 INR 2.70 (0.87-1.13) H 07/09/16 17:38 APTT 47.1 Sec. (24.2-36.6) H 07/09/16 17:38 Sodium 136 mmol/L (137-145) L 07/10/16 16:20 Potassium 5.0 mmol/L (3.6-5.0) 07/10/16 16:20 Chloride 98.9 mmol/L (98-107) 07/10/16 16:20 Carbon Dioxide 25 mmol/L (22-30) 07/10/16 16:20 Anion Gap 17 mmol/L 07/10/16 16:20 BUN 18 mg/dL (9-20) 07/10/16 16:20 Creatinine 1.0 mg/dL (0.8-1.5) 07/10/16 16:20 Estimated GFR > 60 ml/min 07/10/16 16:20 BUN/Creatinine Ratio 18.00 % 07/10/16 16:20 Glucose 198 mg/dL (75-100) H 07/10/16 16:20 POC Glucose 180 (70-105) H 07/11/16 06:05 Hemoglobin A1c 5.8 % (4-6) 07/10/16 04:10 Calcium 9.0 mg/dL (8.4-10.2) 07/10/16 16:20 Iron 22 ug/dL (49-181) L 07/09/16 22:42 TIBC 417.20 mcg/dL (250-450) 07/09/16 22:42 % Saturation 5.27 % 07/09/16 22:42 Transferrin 298 mg/dl (180-329) 07/09/16 22:42 Total Creatine Kinase 77 units/L (55-170) 07/09/16 17:38 CK-MB (CK-2) 2.9 ng/mL (0.0-4.0) 07/09/16 17:38 CK-MB (CK-2) Rel Index 3.7 (0-4) 07/09/16 17:38 Troponin T < 0.010 ng/mL (0.00-0.029) 07/09/16 17:38 Vitamin B12 409.8 pg/mL (211-911) 07/09/16 22:42 TSH 0.936 mlU/mL (0.270-4.200) 07/09/16 17:38 Free T4 1.18 ng/dL (0.76-1.46) 07/09/16 17:38 Urine Color Red (Yellow) 07/09/16 18:23 Urine Turbidity Cloudy (Clear) 07/09/16 18:23 Urine pH 6.0 (5.0-7.0) 07/09/16 18:23 Ur Specific [place] 1.013 (1.003-1.030) 07/09/16 18:23 Urine Protein 100 mg/dl mg/dL (Negative) 07/09/16 18:23 Urine Glucose (UA) Neg mg/dL (Negative) 07/09/16 18:23 Urine Ketones Neg mg/dL (Negative) 07/09/16 18:23 Urine Blood Lg (Negative) 07/09/16 18:23 Urine Nitrite Neg (Negative) 07/09/16 18:23 Urine Bilirubin Neg (Negative) 07/09/16 18:23 Urine Urobilinogen < 2.0 mg/dL (<2.0) 07/09/16 18:23 Ur Leukocyte Esterase Sm (Negative) 07/09/16 18:23 Urine WBC (Auto) 23.0 /HPF (0.0-6.0) H 07/09/16 18:23 Urine RBC (Auto) > 182.0 /HPF (0.0-6.0) 07/09/16 18:23 U Epithel Cells (Auto) 3.0 /HPF (0-13.0) 07/09/16 18:23 Blood Type O POSITIVE 07/09/16 17:45 Antibody Screen TNR 07/09/16 17:45 NICK Antibody Screen Negative 07/09/16 17:45 Crossmatch See Detail 07/09/16 17:45
[2016-07-11] MEDS: ROCEPHIN/NS 1 GM/50 ML 1 GM/50 ML BAG IV SCH (09:55)
[2016-07-11] MEDS: TRADJENTA PO SCH (10:00)
[2016-07-11] MEDS: NORVASC PO SCH (10:00)
[2016-07-11] MEDS: ZESTRIL PO SCH (10:00)
[2016-07-11] MEDS: LASIX PO SCH (10:00)
[2016-07-11] MEDS: MAG-OX PO SCH (10:00)
[2016-07-11] MEDS ORDERED: CORDARONE PO SCH (10:00)
--- NOTE | 2016-07-11 10:27 | Progress Note ---
Assessment and Plan Symptomatic Anemia s/p blood transfusion Hx of Ischemic cardiomyopathy pt has declined recommendation for internal cardiac defibrillator in the past Hx of CAD with CABG Hypertension Diabetes mellitus Hx of paroxysmal Afib/flutter on xarelto for stroke prophylaxis as an outpatient; Currently on hold. on amiodarone for suppression Sinus bradycardia on telemetry monitoring. Patient remains asymptomatic. noted on coreg 12.5mg twice daily; now discontinued. Recommendation: Avoid AV stacy blocking agents. Patient is now considered a poor candidate for anticoagulation due to anemia requiring blood transfusion on presentation. Subjective Date of service: 07/11/16 Interval history: Patient is resting in bed comfortably. He has no complaints. Awaits GI workup today. Stable sinus rhythm, rate 56 on electrocardiogram technician. Objective Vital Signs Temp Pulse Pulse Resp BP Pulse Ox 07/11/16 08:00 97.8 F 65 18 169/76 96 07/11/16 04:30 98.1 F 55 L 18 153/66 95 07/10/16 23:25 99.0 F 57 L 20 137/63 97 07/10/16 20:25 45 L 16 07/10/16 20:00 97.7 F 45 L 18 160/69 96 07/10/16 15:50 98 F 40 L 20 128/62 07/10/16 12:00 98.2 F 42 L 20 120/56 - Physical Examination General: No Apparent Distress HEENT: Positive: PERRL Neck: Positive: trachea midline Cardiac: Positive: Bradycardia Lungs: Positive: Decreased Breath Sounds Neuro: Positive: Grossly Intact - Labs and Meds CBC 07/10/16 07/11/16 Range/Units 16:20 05:22 WBC 9.3 (4.5-11.0) K/mm3 RBC 4.34 (3.65-5.03) M/mm3 Hgb 9.3 L 9.9 L (11.8-15.2) gm/dl Hct 29.8 L 32.8 L (35.5-45.6) % Plt Count 228 (140-440) K/mm3 Comprehensive Metabolic Panel 07/10/16 Range/Units 16:20 Sodium 136 L (137-145) mmol/L Potassium 5.0 (3.6-5.0) mmol/L Chloride 98.9 (98-107) mmol/L Carbon Dioxide 25 (22-30) mmol/L BUN 18 (9-20) mg/dL Creatinine 1.0 (0.8-1.5) mg/dL Glucose 198 H (75-100) mg/dL Calcium 9.0 (8.4-10.2) mg/dL
[2016-07-11 10:51] LABS: Anisocytosis 1+; Basophils % (Manual) 0 % (0.0-1.8); Blastocytes % (Manual) 0 %; Eosinophils % (Manual) 0 % (0.0-4.3)
[2016-07-11 10:52] LABS: Acanthocytes Few; Burr Cells 1+; Diff Status Complete; Elliptocytes Few; Polychromasia 1+
[2016-07-11] MEDS ORDERED: WATER FOR IRRIG STERILE IR ONE (12:03)
--- NOTE | 2016-07-11 12:51 | Anesthesia Day of Surgery ---
Anesthesia Day of Surgery - Day of Surgery Patient Examined: Yes Patient H&P Reviewed: Yes Patient is NPO: Yes Beta Blockers: No (taken off medication by cavalry scout for bradycardia) Cardiac Clearance: Yes
--- NOTE | 2016-07-11 12:53 | Anesthesia Consultation ---
Anesthesia Consult and Med Hx Date of service: 07/11/16 - Airway Anesthetic Teeth Evaluation: Good, Caps (front left tooth) ROM Head & Neck: Adequate Mental/Hyoid Distance: Adequate Mallampati Class: Class II Intubation Access Assessment: Probably Good - Pulmonary Exam CTA: Yes - Cardiac Exam Cardiac Exam: RRR - Pre-Operative Health Status ASA Pre-Surgery Classification: ASA3 Proposed Anesthetic Plan: MAC - Pulmonary Hx Smoking: Yes (QUIT 10 YRS AGO) Hx Sleep Apnea: Yes (bipap machine at night) - Cardiovascular System Hx Hypertension: Yes Hx Coronary Artery Disease: Yes Hx Heart Attack/AMI: Yes Hx Cardia Arrhythmia: Yes (HX of Afib/Flutter, Succesful cardioversion) - Central Nervous System Hx Psychiatric Problems: No - Gastrointestinal Hx Gastroesophageal Reflux Disease: Yes - Endocrine Hx Non-Insulin Dependent Diabetes: Yes - Hematic Hx Anemia: Yes - Other Systems Hx Cancer: No
[2016-07-11] MEDS ORDERED: NACL 0.9% 1000 ML 1,000 ML IV SCH (13:00)
[2016-07-11 14:21] LABS: INR 1.3 (0.87-1.13)
[2016-07-11] MEDS ORDERED: AMIDATE IV ONE (15:15)
[2016-07-11] MEDS ORDERED: DIPRIVAN 10 MG/ML IV ONE (15:15)
--- NOTE | 2016-07-11 16:06 | Post Operative Note ---
Pre-op diagnosis: anemia Post-op diagnosis: same Findings: EGD: hiatal hernia - mild gastritis' -nl small bowel (bx's) colon: poor prep, completed -10 mm polyp ascending colon (snare removed) - hemorrhoids Procedure: EGD/colonoscopy Anesthesia: MAC Surgeon: JOHNY LUGO Estimated blood loss: none Pathology: list Specimen disposition: to lab Condition: stable Disposition: floor
[2016-07-11 16:48] VITALS: BP 159/83
--- NOTE | 2016-07-11 16:49 | Discharge Summary ---
Providers - Providers Date of Admission: 07/09/16 18:45 Attending physician: DEONNA SARMIENTO MD 07/10/16 07:31 Consult to Physician [CONS] Routine Consulting Provider: MARLEE AGUILAR Reason For Exam: Microcytic anemia Place consult to:: [facility] Notified:: OFFICE Phone number called:: [phone] Was contact made?: Yes If yes, spoke with:: JUSTICE Time called:: 09:04 Comment:: MELANIE NOTIFIED 07/10/16 13:47 Consult to Physician [CONS] Urgent Consulting Provider: DUONG NOVAK Reason For Exam: Bradycardiac Place consult to:: [facility] Notified:: Meghna Colon Phone number called:: in house Was contact made?: Yes If yes, spoke with:: Meghna Time called:: 14:52 Primary care physician: CORNELIUS SABA Hospitalization Condition: Fair Hospital course: This is a 71yr old male with an extensive cardiac history. He has a history of atrial fibrillation/flutter on anticoagulation. A year ago he was successfully cardioverted from atrial fibrillation to a sinus rhythm. He is on amiodarone for suppression and xarelto for stroke prophylaxis. He has a history coronary artery disease with remote bypass grafting. He also has a history of ischemic cardiomyopathy. Patient has declined recommendation for internal cardiac defibrillator in the past. He presented to the hospital with chief complaint of dizziness upon standing he was found to have hematocrit of 26. And also admitted to hematuria. Patient has a left kidney mass to suspected to be malignancy for which she is planned for nephrectomy on July 21. 1. Acute blood loss anemia Patient has been transfused with adequate rise in hemoglobin. Most likely etiologies hematuria, patient is to have nephrectomy on July 21 2. Paroxysmal A. fib, patient is currently bradycardic Beta [place] has been put on hold, cardiology input appreciated Heart rate is improved today, on Xarelto for stroke prophylaxis, and amiodarone for treatment of A. fib 3. Left kidney mass Patient is planned for nephrectomy on July 21 for an outpatient, he's been advised to keep this appointment 4. Diabetes Continue insulins Disposition: DISCHARGED TO HOME OR SELFCARE Time spent for discharge: 35 minutes Core Measure Documentation - Palliative Care Palliative Care/ Comfort Measures: Not Applicable - Core Measures Any of the following diagnoses?: none Exam - Constitutional Vitals: Temp Pulse Resp BP Pulse Ox 98.6 F 46 L 13 133/48 98 07/11/16 15:52 07/11/16 16:22 07/11/16 16:22 07/11/16 16:22 07/11/16 16:22 General appearance: Present: no acute distress, well-nourished - EENT Eyes: Present: PERRL ENT: hearing intact, clear oral mucosa - Neck Neck: Present: supple, normal ROM - Respiratory Respiratory effort: normal Respiratory: bilateral: CTA - Cardiovascular Heart Sounds: Present: S1 & S2. Absent: rub, click - Extremities Extremities: pulses symmetrical, No edema Peripheral Pulses: within normal limits - Abdominal General gastrointestinal: Present: soft, non-tender, non-distended, normal bowel sounds Male genitourinary: Present: normal - Integumentary Integumentary: Present: clear, warm, dry - Musculoskeletal Musculoskeletal: gait normal, strength equal bilaterally - Psychiatric Psychiatric: appropriate mood/affect, intact judgment & insight - Neurologic Neurologic: CNII-XII intact, moves all extremities Plan Follow up with: CORNELIUS SABA MD [Primary Care Provider] - 7 Days
--- NOTE | 2016-07-11 21:46 | Operative Report ---
PROCEDURE: EGD. INDICATION: 1. Anemia. 2. Possible gastrointestinal blood loss. MEDICATIONS: Propofol per COMPOSING MACHINE OPERATOR/TENDER. COMPLICATIONS: None. DESCRIPTION OF PROCEDURE: The patient was brought to procedure suite. The patient had the procedure discussed with him at length. All risks, complications, and benefits were discussed after which the patient signed for the procedure to be performed. The patient was placed in left decubitus position. Mouth block was placed in the patient's oral cavity. After adequate sedation, medication as above, endoscope was introduced into the mouth and brought to the level of the second portion of duodenum. Retroflexion view performed. The patient's vital signs remained stable throughout the procedure. FINDINGS: There was a small to medium hiatal hernia at GE junction 42 cm from the gums. The esophagus otherwise appeared to be normal. There was mild evidence of gastritis noted. The stomach otherwise appeared to be normal. The duodenum appeared to be normal. Given anemia, biopsies were taken and sent to pathology. Retroflexion view performed in the stomach showed no other pathology other than noted above. The patient tolerated the procedure well. No complications during the procedure. IMPRESSION: 1. Hiatal hernia. 2. Mild gastritis. 3. Otherwise, normal esophagogastroduodenoscopy with biopsies taken of the small bowel. RECOMMENDATIONS: 1. Followup biopsy results. 2. If H. pylori positive, we will treat. 3. PPI daily. 4. Colonoscopy to follow and further recommendations based on colonoscopy results. JOB# [id number] [facility]
--- NOTE | 2016-07-11 22:10 | Operative Report ---
PROCEDURE PERFORMED: Colonoscopy with hot snare polypectomy. INDICATION: 1. Anemia. 2. Possible GI bleed. MEDICATIONS: Propofol per COAGULANT DIPPER. COMPLICATIONS: None. DESCRIPTION OF PROCEDURE: The patient was brought to procedure suite. The patient had the procedure discussed with him at length. All risks, complications, and benefits were discussed after which the patient signed for the procedure to be performed. The patient was placed in the lateral decubitus position. Rectal exam was performed prior to insertion of the scope. After adequate sedation, medication as above, scope was inserted into the rectum and brought to the level of the cecum. Colonoscope was then removed and the mucosa visualized. Prep quality was poor, but procedure was completed. FINDINGS: This is a poor prep, so cannot rule out small to medium lesion, especially in the very proximal colon. There was noted to be a 10 mm sessile small polyp noted in the ascending colon. A snare polypectomy technique was applied with removal and retrieval of this polyp and sent to pathology. No other masses, lesions, or polyps were noted. No significant diverticula were noted. Retroflexion view performed in the rectum showed small to medium internal hemorrhoids. The patient tolerated the procedure well. No complications during the procedure. IMPRESSION: 1. Poor prep, so cannot rule out small to medium lesions, especially at the proximal colon. 2. Polyp status post hot snare polypectomy. 3. Internal hemorrhoids. RECOMMENDATIONS: 1. Followup biopsy results. 2. Avoid NSAIDs and aspirin for 5-7 days. 3. High-fiber diet. 4. Okay to discharge from GI standpoint with consideration for further follow up as an outpatient. JOB# [id number] SHARON/CRISTA STEINBERG
== END 2016-07-11 18:15 | disposition home health service (06) | DRG 812 ==
LOC: ED 16:56 → 3A 18:45
PROVIDERS: ADMIT Internal Medicine; ATTEND Internal Medicine
PROC: 30233N1 Transfusion of Nonautologous Red Blood Cells into Peripheral Vein, Percutaneous Approach (ICD-10-PCS; 2016-07-09)
PROC: 0DBK8ZX Excision of Ascending Colon, Via Natural or Artificial Opening Endoscopic, Diagnostic (ICD-10-PCS; principal; 2016-07-11)
PROC: 0DB68ZX Excision of Stomach, Via Natural or Artificial Opening Endoscopic, Diagnostic (ICD-10-PCS; 2016-07-11)
DX: D62 Acute posthemorrhagic anemia (principal); N39.0 Urinary tract infection, site not specified; E87.5 Hyperkalemia; E11.649 Type 2 diabetes mellitus with hypoglycemia without coma; I11.0 Hypertensive heart disease with heart failure; I50.9 Heart failure, unspecified; R31.9 Hematuria, unspecified; R00.1 Bradycardia, unspecified; I25.10 Atherosclerotic heart disease of native coronary artery without angina pectoris; I48.0 Paroxysmal atrial fibrillation; K29.70 Gastritis, unspecified, without bleeding; K44.9 Diaphragmatic hernia without obstruction or gangrene; K64.8 Other hemorrhoids; I25.5 Ischemic cardiomyopathy; N28.89 Other specified disorders of kidney and ureter; I25.2 Old myocardial infarction; Z79.4 Long term (current) use of insulin; Z79.82 Long term (current) use of aspirin; Z95.1 Presence of aortocoronary bypass graft; Z88.0 Allergy status to penicillin; Z88.2 Allergy status to sulfonamides
CPT/HCPCS: 36415; 70450; 80048; 81001; 82550; 82553; 82607; 82747; 82962; 83036; 83550; 84439; 84443; 84484; 85007; 85014; 85018; 85025; 85610; 85730; 86850; 86900; 86901; 86920; 88305; 93005; 93010; A9270-GY; J0696; J1815; J1818; J2704; J7030; J7040; J7050; P9016